=== PATIENT | male | born 1960 | race Caucasian/White ===

== ENCOUNTER 2020-03-15 12:09 | Inpatient (IN) | payer OTHER ==
[~2020-03-15] VITALS: Ht 172.7 cm; Wt 58.1 kg
[~2020-03-15 12:09] MED LIST: AMOXICILLIN250 MG PO; GLUCAGON FOR INJ 1 MG VIAL ONE; LISINOPRIL10 MG PO; OMEPRAZOLE40 MG PO; PROPOFOL IV EMULSION 10 MG/ML 20 ML VIAL ONE
[2020-03-15] MEDS ORDERED: SODIUM CHLORIDE 0.9% 1000ML 1,000 ML ONE (12:25)
[2020-03-15] MEDS ORDERED: LACTATED RINGER'S 1,000 ML INJ ONE (12:30)
[2020-03-15 12:42] LABS: BASOPHILS # (AUTO) 0.1 (0.0-0.1); BASOPHILS % 0.5 % (0.0-1.0); EOSINOPHILS # (AUTO) 0.2 (0.0-0.4); EOSINOPHILS % 0.9 % (0.0-6.0); HEMATOCRIT 53.2 % (38.2-49.6); HEMOGLOBIN 18.9 g/dL (14.0-18.0); LYMPHOCYTES # (AUTO) 1.4 (1.0-3.2); LYMPHOCYTES % 8.4 % (18.0-39.1); MEAN CORPUSCULAR HEMOGLOBIN 32.1 pg (28-32); MEAN CORPUSCULAR HGB CONC 35.5 g/dL (31-35); MEAN CORPUSCULAR VOLUME 90.3 fL (81-99); MONOCYTES # (AUTO) 1.9 (0.2-0.8); MONOCYTES % 11.6 % (4.4-11.3); NEUTROPHILS # (AUTO) 13.1 (2.1-6.9); PLATELET COUNT 403 x10e3/uL (140-360); RED BLOOD COUNT 5.89 x10e6/uL (4.3-5.7); RED CELL DISTRIBUTION WIDTH 12.9 % (11.7-14.4)
[2020-03-15 13:00] LABS: ALBUMIN 4.4 g/dL (3.5-5.0); ALBUMIN/GLOBULIN RATIO 0.8 (0.8-2.0); ANION GAP 22.1 mmol/L (8-16); CALCIUM 9.6 mg/dL (8.4-10.2); CREATININE, SERUM 2.51 mg/dL (0.72-1.25); POTASSIUM 3.1 mmol/L (3.5-5.1)
[2020-03-15] MEDS ORDERED: SODIUM CHLORIDE 0.9% 1000ML 1,000 ML IV SCH (13:00)
[2020-03-15 13:29] LABS: THYROID STIMULATING HORMONE 6.319 uIU/mL (0.350-4.940)
--- NOTE | 2020-03-15 14:03 | Diagnostic Imaging Report ---
X-ray chest frontal view History: Don't feel good, no energy Comparison: None Findings: Central airways: Unremarkable Cardiac silhouette: Unremarkable Mediastinal silhouettes: Unremarkable Pleura: No pleural effusion, pneumothorax or thickening Diaphragms: Unremarkable Lungs: No focal lung disease Skeletal structures: Unremarkable Extrathoracic soft tissues: Unremarkable Impression: As above. Signed by: Nitesh Castaneda MD on 03/15/2020 2:00 PM
[2020-03-15] MEDS ORDERED: LACTATED RINGER'S 1,000 ML INJ SCH (14:15)
[2020-03-15 14:34] LABS: INR 1.02; PARTIAL THROMBOPLASTIN TIME 32.5 seconds (23.8-35.5); PROTHROMBIN TIME 13.9 seconds (11.9-14.5)
[2020-03-15 15:02] LABS: EOSINOPHILS % (MANUAL) 1 % (0-7); LYMPHOCYTES % (MANUAL) 8 % (19-48); MONOCYTES % (MANUAL) 11 % (3.4-9.0); NEUTROPHILS % (MANUAL) 76 % (40-74)
[2020-03-15 15:03] LABS: PLATELET ESTIMATE ADEQUATE; PLATELET MORPHOLOGY COMMENT NORMAL; RBC MORPHOLOGY COMMENT NORMAL
--- NOTE | 2020-03-15 15:50 | Diagnostic Imaging Report ---
EXAMINATION: CT of the abdomen and pelvis without contrast. TECHNIQUE: Spiral CT images of the abdomen and pelvis were performed from the lung bases to the lesser trochanters. No intravenous contrast was given due to diminished GFR. Coronal and sagittal reformatted images were obtained. COMPARISON: Chest radiograph same day CLINICAL HISTORY:Abdominal pain, diarrhea, weakness DISCUSSION: ABSENCE OF INTRAVENOUS CONTRAST DECREASES SENSITIVITY FOR DETECTION OF FOCAL LESIONS AND VASCULAR PATHOLOGY. ABDOMEN/PELVIS: LOWER THORAX: Mild emphysematous changes of the lung bases. HEPATOBILIARY:No focal hepatic lesions. No intrahepatic biliary ductal dilation. The gallbladder is unremarkable. SPLEEN: No splenomegaly or focal splenic lesion. PANCREAS: No focal masses or ductal dilatation. ADRENALS: No adrenal nodules. KIDNEYS/URETERS: 1.2 cm exophytic lesion projecting from the interpolar left kidney has average internal attenuation less than 20 Hounsfield units, compatible with a simple cyst. No additional focal renal lesions. No hydronephrosis or calculi. PELVIC ORGANS/BLADDER: Urinary bladder is incompletely distended but otherwise unremarkable. The prostate is enlarged, measuring 5 cm transversely, with a coarse central calcification. PERITONEUM/RETROPERITONEUM: No ascites or pneumoperitoneum. LYMPH NODES: Scattered mildly prominent mesenteric lymph nodes are not enlarged by CT criteria. No retroperitoneal or pelvic sidewall lymphadenopathy. VESSELS: Atherosclerotic calcification of the abdominal aorta and iliac arterial systems without aneurysmal dilatation. Otherwise limited evaluation in the absence of intravenous contrast. GI TRACT: The large bowel is notable for multiple diverticula along the sigmoid colon without adjacent inflammatory change. Large amount of liquid stool within the colon. Concentric wall thickening at the rectosigmoid junction as seen on coronal image 58 and axial image 69. The appendix is normal. Small lipoma in the duodenum seen on series 2 image 36. No small bowel dilatation to suggest obstruction. BONES AND SOFT TISSUES: No osseous destructive lesions. Degenerative disc changes and facet arthropathy L2-L3 through L5-S1. IMPRESSION: Liquid stool within the colon in keeping with the provided clinical history of diarrhea. This finding in association with increased number of conspicuous mesenteric lymph nodes suggests viral enteritis. Concentric wall thickening of the colon at the rectosigmoid junction may relate to peristalsis; however, gastroenterology consultation for direct visualization to exclude presence of mass lesion is suggested if the patient has not recently undergone screening colonoscopy. Sigmoid diverticulosis without findings of diverticulitis. Atherosclerotic vascular disease. Signed by: Dr. Lawrence Perdue M.D. on 03/15/2020 3:46 PM
[2020-03-15] MEDS ORDERED: PIPERACILLIN/TAZO 4.5 GM 100 ML IV ONE (17:00)
[2020-03-15 17:05] LABS: CLARITY,URINE SL CLOUDY (CLEAR); COLOR,URINE YELLOW (YELLOW); LEUKOCYTE ESTERASE ,URINE TRACE (NEGATIVE); NITRITE,URINE NEGATIVE (NEGATIVE)
[2020-03-15 17:06] LABS: BILIRUBIN,URINE NEGATIVE (NEGATIVE); KETONES,URINE NEGATIVE (NEGATIVE); PROTEIN,URINE DIPSTICK 2+ (NEGATIVE); URINE UROBILINOGEN 0.2 mg/dL (0.2 - 1)
[2020-03-15 17:17] LABS: BACTERIA,URINE MODERATE /HPF; EPITHELIAL CELLS,URINE FEW /LPF; WBC,URINE (MAN) 0-5 /HPF (0-5)
--- NOTE | 2020-03-15 17:34 | Emergency Department Note ---
History of Present Illnes History of Present Illness Chief Complaint: General Medicine Complaints History of Present Illness This is a 59 year old male presents for X 5 DAYS VOMITING, DIARRHEA, WEAKNESS, LEG CRAMPS . 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 Any updates have been documented here. Past Medical History Recent Fever: No Clinical Suspicion of Infectio: No New/Unexplained Change in Ment: No Past Medical History: Hypertension Other Medical History: CELIAC Past Surgical History: T&A Social History Smoking Cessation: Current every day smoker Counseling Performed: Yes Alcohol Use: Daily Other Any Pre-Existing Lines (PICC,: No Review of Systems Review of Systems Constitutional: Reports no symptoms EENTM: Reports no symptoms Cardiovascular: Reports no symptoms Respiratory: Reports no symptoms Gastrointestinal: Reports no symptoms, Reports abdominal pain, Reports diarrhea Genitourinary: Reports no symptoms Musculoskeletal: Reports no symptoms, Reports muscle pain Integumentary: Reports no symptoms Neurological: Reports no symptoms Psychological: Reports no symptoms Endocrine: Reports no symptoms Hematological/Lymphatic: Reports no symptoms Physical Exam Related Data Allergies: Coded Allergies: No Known Allergies (Verified , 07/14/10) Triage Vital Signs Vital Signs Date Time Temp Pulse Resp B/P (MAP) Pulse Ox O2 Delivery O2 Flow Rate FiO2 03/15/20 12:24 98.4 122 20 80/47 99 Room Air Vital signs reviewed: Yes Physical Exam CONSTITUTIONAL Constitutional: Present well-developed, Present well-nourished, Present distressed HENT HENT: Present normocephalic, Present atraumatic, Present oropharynx clear/moist, Present nose normal HENT L/R: Present left ext ear normal, Present right ext ear normal EYES Eyes: Reports PERRL, Reports conjunctivae normal NECK Neck: Present ROM normal PULMONARY Pulmonary: Present effort normal, Present breath sounds normal CARDIOVASCULAR Cardiovascular: Present regular rhythm, Present heart sounds normal, Present capillary refill normal, Present normal rate GASTROINTESTINAL Abdominal: Present soft, Present bowel sounds normal, Present tender GENITOURINARY Genitourinary: Present exam deferred SKIN Skin: Present warm, Present dry MUSCULOSKELETAL Musculoskeletal: Present ROM normal NEUROLOGICAL Neurological: Present alert, Present oriented x 3, Present no gross motor or sensory deficits PSYCHOLOGICAL Psychological: Present mood/affect normal, Present judgement normal Results Laboratory Result Diagram: 03/15/20 1235 03/15/20 1235 Laboratory Laboratory Tests Test 03/15/20 16:54 03/15/20 16:52 03/15/20 14:36 03/15/20 12:35 Lactic Acid Level 1.6 mmol/L (0.5-2.0) 2.8 mmol/L (0.5-2.0) Urine Color Yellow (YELLOW) Urine Clarity Sl cloudy (CLEAR) Urine pH 5 (5 - 7) Urine Specific [place] 1.020 (1.010-1.025) Urine Protein 2+ (NEGATIVE) Urine Glucose (UA) Negative (NEGATIVE) Urine Ketones Negative (NEGATIVE) Urine Blood Moderate (NEGATIVE) Urine Nitrite Negative (NEGATIVE) Urine Bilirubin Negative (NEGATIVE) Urine Urobilinogen 0.2 mg/dL (0.2 - 1) Urine Leukocyte Esterase Trace (NEGATIVE) Urine RBC 6-10 /HPF (0-5) Urine WBC 0-5 /HPF (0-5) Urine Epithelial Cells Few /LPF (NONE) Urine Bacteria Moderate /HPF (NONE) White Blood Count 16.75 x10e3/uL (4.8-10.8) Red Blood Count 5.89 x10e6/uL (4.3-5.7) Hemoglobin 18.9 g/dL (14.0-18.0) Hematocrit 53.2 % (38.2-49.6) Mean Corpuscular Volume 90.3 fL (81-99) Mean Corpuscular Hemoglobin 32.1 pg (28-32) Mean Corpuscular Hemoglobin Concent 35.5 g/dL (31-35) Red Cell Distribution Width 12.9 % (11.7-14.4) Platelet Count 403 x10e3/uL (140-360) Neutrophils (%) (Auto) 78.0 % (38.7-80.0) Lymphocytes (%) (Auto) 8.4 % (18.0-39.1) Monocytes (%) (Auto) 11.6 % (4.4-11.3) Eosinophils (%) (Auto) 0.9 % (0.0-6.0) Basophils (%) (Auto) 0.5 % (0.0-1.0) Neutrophils # (Auto) 13.1 (2.1-6.9) Lymphocytes # (Auto) 1.4 (1.0-3.2) Monocytes # (Auto) 1.9 (0.2-0.8) Eosinophils # (Auto) 0.2 (0.0-0.4) Basophils # (Auto) 0.1 (0.0-0.1) Absolute Immature Granulocyte (auto 0.10 x10e3/uL (0-0.1) Differential Total Cells Counted 100 Neutrophils % (Manual) 76 % (40-74) Lymphocytes % (Manual) 8 % (19-48) Monocytes % (Manual) 11 % (3.4-9.0) Eosinophils % (Manual) 1 % (0-7) Reactive Lymphocytes 4 Platelet Estimate Adequate Platelet Morphology Comment Normal Red Cell Morphology Comment Normal Prothrombin Time 13.9 seconds (11.9-14.5) Prothromb Time International Ratio 1.02 Activated Partial Thromboplast Time 32.5 seconds (23.8-35.5) Sodium Level 124 mmol/L (136-145) Potassium Level 3.1 mmol/L (3.5-5.1) Chloride Level 88 mmol/L (98-107) Carbon Dioxide Level 17 mmol/L (22-29) Anion Gap 22.1 mmol/L (8-16) Blood Urea Nitrogen 45 mg/dL (7-26) Creatinine 2.51 mg/dL (0.72-1.25) Estimat Glomerular Filtration Rate 27 ML/MIN (60-) BUN/Creatinine Ratio 18 (6-25) Glucose Level 151 mg/dL (74-118) Calcium Level 9.6 mg/dL (8.4-10.2) Total Bilirubin 0.8 mg/dL (0.2-1.2) Aspartate Amino Transf (AST/SGOT) 33 IU/L (5-34) Alanine Aminotransferase (ALT/SGPT) 22 IU/L (0-55) Alkaline Phosphatase 114 IU/L (40-150) Lactate Dehydrogenase 270 IU/L (125-220) Troponin I 0.023 ng/mL (0-0.300) Total Protein 9.6 g/dL (6.5-8.1) Albumin 4.4 g/dL (3.5-5.0) Globulin 5.2 g/dL (2.3-3.5) Albumin/Globulin Ratio 0.8 (0.8-2.0) Thyroid Stimulating Hormone (TSH) 6.319 uIU/mL (0.350-4.940) Thyroxine (T4) 11.16 ug/dL (4.5-10.9) Lab results reviewed: Yes Imaging Imaging results reviewed: Yes Diagnostics Tests Diagnostic test(s) reviewed: Yes Assessment & Plan Medical Decision Making MDM 59-year-old man presents for diarrhea, muscle cramps. Initially was hypotensive and was given 3 L of crystalloid with resolution of hypertension. Initial lactic acid was 2.8. He was started on Zosyn for presumed abdominal infection. CT abdomen and pelvis shows enteritis. He was discussed with Dr. Solomon was agreed to admit for further management of his enteritis. Patient's transient floor. Sepsis suspected at time of antibiotic order. Lactic acid was repeated if initial >2 30cc/kg crystalloid bolus given Vasopressors were not indicated Reassessment Reassessment time: 17:33 Reassessment BP and pain improved Assessment & Plan Final Impression: (1) Enteritis (2) Hypotension Depart Disposition: ADMITTED Last Vital Signs Date Time Temp Pulse Resp B/P (MAP) Pulse Ox O2 Delivery O2 Flow Rate FiO2 03/15/20 16:52 112 12 80/63 98 Room Air 03/15/20 12:24 98.4 Home Meds Reported Medications Amoxicillin (AMOXICILLIN) 250 Mg Capsule, 500 MG PO, CAP 03/24/15 Lisinopril (LISINOPRIL) 10 Mg Tablet, 10 MG PO DAILY, #30 TAB 03/24/15 Omeprazole (OMEPRAZOLE) 40 Mg Capsule.dr, 20 MG PO DAILY 03/24/15 Medications in the ED Sodium Chloride 1,000 ml @ ud STK-MED ONCE .ROUTE ; Start 03/15/20 at 12:25; St op 03/15/20 at 12:20; Status DC Lactated Ringer's 1,000 ml @ 125 mls/hr Q8H ONCE INJ Last administered on 03/15/20at 12:46; Admin Dose 125 MLS/HR; Start 03/15/20 at 12:30; Stop 03/15/20 at 20:29 Sodium Chloride 1,000 ml @ 0 mls/hr Q0M IV Last administered on 03/15/20at 12:50; Admin Dose 1,000 MLS/HR; Start 03/15/20 at 13:00; Stop 03/15/20 at 17:00; Status DC Lactated Ringer's 1,000 ml @ 0 mls/hr Q0M INJ Last administered on 03/15/20at 14:36; Admin Dose 1,000 MLS/HR; Start 03/15/20 at 14:15; Stop 04/14/20 at 14:14 Piperacillin Sod/ Tazobactam Sod 100 ml @ 100 mls/hr NOW ONCE IV ; Start 03/15/20 at 17:00; Stop 03/15/20 at 17:59 LUCI MOTLEY MD Mar 15, 2020 17:34
--- OUTSIDE RECORDS SUMMARY | 2020-03-15 17:39 | XMS REPORT | Continuity of Care Document ---
Author Author [facility] t Organization [facility] Address [address] [place] [phone] Phone Unavailable Care Team Providers Care Sports Therapist Name Role Phone Girish Callahan Attphys Unavailable Problems This patient has no known problems. Allergies, Adverse Reactions, Alerts This patient has no known allergies or adverse reactions. Medications This patient has no known medications. Procedures This patient has no known procedures. Results Test Description Test Time Test Comments Results Result Comments Source CT ABDOMEN/PELVIS WO 2020-03-15 15:32:00 [place] [address] Patient Name: DIANA CASTILLO MR #: [id number] : 1960 Age/Sex: 59/M Req #: [id number] Adm Physician: Ordered by: Luci Callahan MD Report #: [id number] Location: ER Room/Bed: Procedure: [id number] CT/CT ABDOMEN/PELVIS WO Exam Date: 03/15/20 Exam Time: 1440 REPORT STATUS: Signed EXAMINATION: CT of the abdomen and pelvis without contrast. TECHNIQUE: Spiral CT images of the abdomen and pelvis were performed from the lung bases to the lesser trochanters. No intravenous contrast was given due to diminished GFR. Coronal and sagittal reformatted images were obtained. COMPARISON: Chest radiograph same day CLINICAL HISTORY:Abdominal pain, diarrhea, weakness DISCUSSION: ABSENCE OF INTRAVENOUS CONTRAST DECREASES SENSITIVITY FOR DETECTION OF FOCAL LESIONS AND VASCULAR PATHOLOGY. ABDOMEN/PELVIS: LOWER THORAX: Mild emphysematous changes of the lung bases. HEPATOBILIARY:No focal hepatic lesions. No intrahepatic biliary ductal dilation. The gallbladder is unremarkable. SPLEEN: No splenomegaly or focal splenic lesion. PANCREAS: No focal masses or ductal dilatation. ADRENALS: No adrenal nodules. KIDNEYS/URETERS: 1.2 cm exophytic lesion projecting from the interpolar left kidney has average internal attenuation less than 20 Hounsfield units, compatible with a simple cyst. No additional focal renal lesions. No hydronephrosis or calculi. PELVIC ORGANS/BLADDER: Urinary bladder is incompletely distended but otherwise unremarkable. The prostate is enlarged, measuring 5 cm transversely, with a coarse central calcification. PERITONEUM/RETROPERITONEUM: No ascites or pneumoperitoneum. LYMPH NODES: Scattered mildly prominent mesenteric lymph nodes are not enlarged by CT criteria. No retroperitoneal or pelvic sidewall lymphadenopathy. VESSELS: Atherosclerotic calcification of the abdominal aorta and iliac arterial systems without aneurysmal dilatation. Otherwise limited evaluation in the absence of intravenous contrast. GI TRACT: The large bowel is notable for multiple diverticula along the sigmoid colon without adjacent inflammatory venkat nge. Large amount of liquid stool within the colon. Concentric wall thickening at the rectosigmoid junction as seen on coronal image 58 and axial image 69. The appendix is normal. Small lipoma in the duodenum seen on series 2 image 36. No small bowel dilatation to suggest obstruction. BONES AND SOFT TISSUES: No osseous destructive lesions. Degenerative disc changes and facet arthropathy L2-L3 through L5-S1. IMPRESSION: Liquid stool within the colon in keeping with the provided clinical history of diarrhea. This finding in association with increased number of conspicuous mesenteric lymph nodes suggests viral enteritis. Concentric wall thickening of the colon at the rectosigmoid junction may relate to peristalsis; however, gastroenterology consultation for direct visualization to exclude presence of mass lesion is suggested if the patient has not recently undergone screening colonoscopy. Sigmoid diverticulosis without findings of diverticulitis. At herosclerotic vascular disease. Signed by: Dr. Mary Warren M.D. on 03/15/2020 3:46 PM Dictated By: MARY WARREN MD [id number] Transcribed By: DISHA on 03/15/20 8645 COPY TO: LUCI CALLAHAN MD CHEST SINGLE (PORTABLE) 2020-03-15 13:58:00 [place] [address] Patient Name: DIANA CASTILLO MR #: [id number] : 1960 Age/Sex: 59/M Req #: [id number] Adm Physician: Ordered by: Luci Callahan MD Report #: [id number] Location: ER Room/Bed: Procedure: [id number] DX/CHEST SINGLE (PORTABLE) Exam Date: 03/15/20 Exam Time: 1310 REPORT STATUS: Signed X-ray chest frontal view History: Don't feel good, no energy Comparison: None Findings: Central airways: Unremarkable Cardiac silhouette: Unremarkable Mediastinal silhouettes: Unremarkable Pleura: No pleural effusion, pneumot horax or thickening Diaphragms: Unremarkable Lungs: No focal lung disease Skeletal structures: Unremarkable Extrathoracic soft tissues: Unremarkable Impression: As above. Signed by: Gege Gooden MD on 03/15/2020 2:00 PM Dictated By: GEGE GOODEN MD 1400 Transcribed By: DISHA on 03/15/20 1400 COPY TO: LUCI CALLAHAN MD
--- NOTE | 2020-03-15 18:10 | NUR ---
GREEN SHEET ON CHART PER POLICY
[2020-03-15] MEDS ORDERED: SODIUM CHLORIDE 0.9% 1000ML 1,000 ML IV STA (18:39)
--- NOTE | 2020-03-15 19:24 | NUR ---
REPORT TO MARY Villalba
[2020-03-15] MEDS ORDERED: ACETAMINOPHEN 325 MG TAB PO PRN (20:00)
[2020-03-15] MEDS ORDERED: ONDANSETRON HCL INJ 2MG/ML 2ML 2 MG/ML VIAL IV PRN (20:00)
[2020-03-15] MEDS ORDERED: METOPROLOL TARTRATE INJ 1 MG/ML VIAL IV PRN (20:00)
[2020-03-15] MEDS ORDERED: LEVOTHYROXINE SODIUM 100 MCG/VIAL IV NR (20:15)
[2020-03-15] MEDS: SODIUM CHLORIDE 0.9% 1000ML 1,000 ML IV SCH (20:24)
[2020-03-15 20:55] VITALS: BP 91/59
[2020-03-15] MEDS ORDERED: TEMAZEPAM 7.5 MG CAP PO PRN (21:00)
--- NOTE | 2020-03-15 22:15 | NUR ---
RECEIVED PATIENT FROM ER IN STABLE CONDITION, NO SIGNS OF DISTRESS NOTED. BLOOD PRESSURE IS IN BETTER RANGE AND IV FLUIDS ARE RUNNING AT ORDERED RATE. PATIENT VOICES NO PAIN AT THIS TIME. BED IS IN LOWEST POSITION, BOTH SIDE RAILS ARE UP, CALL LIGHT IS WITHIN EASY REACH, WILL CONTINUE TO MONITOR.
[2020-03-15] MEDS: FAMOTIDINE 20 MG/2 ML VIAL IV SCH (22:20)
[2020-03-15 22:30] VITALS: BP 112/72
[2020-03-16] VITALS (8 sets, daily range): BP systolic 100–127; BP diastolic 57–85
--- NOTE | 2020-03-16 01:16 | History and Physical ---
PRIMARY CARE PHYSICIAN: Vernon Frye DO CONSULTING PHYSICIAN: Norman Moss MD, with Gastroenterology. CHIEF COMPLAINT: Diarrhea. HISTORY OF PRESENT ILLNESS: The patient is a 59-year-old male who presented to the emergency department with 5-day history of nausea, vomiting, diarrhea, leg cramps, weakness, and dehydration. He admits noncompliance with his celiac gluten-free diet and drinking some whiskey as well. He has been given a considerable amount of fluids in the emergency department, likely around 3 L. He is seen in ER room #11 and per staff, he will be going to room #212. PAST MEDICAL HISTORY: Hypertension; celiac disease; noncompliance with gluten-free diet; bilateral inguinal hernias, right is reportedly worse than left; psoriasis, mostly at the feet. PAST SURGICAL HISTORY: Tonsillectomy and adenoidectomy. FAMILY HISTORY: Father had Alzheimer's, his age 72, also had tuberculosis. Son has autism. His mother has irritable bowel syndrome. SOCIAL HISTORY: The patient admits to smoking daily one pack per day for 15 years. He drinks alcohol, rum 4-5 times a week. Denies any use of illicit drugs. ALLERGIES: NO KNOWN ALLERGIES. REVIEW OF SYSTEMS: CONSTITUTIONAL: Denies any chills or fever at present. He wears glasses. He has had ear congestion past few days. He denies any cough or shortness of breath. Denies any difficulty urinating. PSYCHIATRIC: Denies psychiatric history. INTEGUMENTARY: He has psoriasis. CARDIOVASCULAR: Denies chest pain or palpitations. GASTROINTESTINAL: He has had vomiting this afternoon and diarrhea earlier today. MUSCULOSKELETAL: Unstable now when getting out of bed. He has had leg cramps as well. NEUROLOGIC: No complaints of headache or dizziness. HEMATOLOGIC: No bleeding or bruising noted. PHYSICAL EXAMINATION: VITAL SIGNS: Temperature 98.4, heart rate 100, blood pressure was 88/61 earlier, now 112/72, respirations 18, oxygen saturation 98% on room air. Height 5 feet 8 inches, weight 128 pounds, BMI 19.46. GENERAL: Supine in bed, relaxed, communicative. LUNGS: Generally clear to auscultation. Respiratory pattern even and unlabored, breathing room air. No supplemental oxygen. HEENT: EOMI. NECK: Supple. CARDIOVASCULAR: Regular rate and rhythm. No murmur. ABDOMEN: Bowel sounds positive. Soft, nontender. EXTREMITIES: No pitting edema. No clubbing, cyanosis, or marked swelling. No signs of DVT. NEUROLOGICAL: GCS 15. Nonfocal. LABORATORY DATA: WBCs 16.75, hemoglobin 18.9, hematocrit 53.2, platelets 403. PT 13.9, INR 1.02, PTT 32.5. Lactic acid was 2.8, now 1.6. Lactate dehydrogenase elevated at 270. Troponin I 0.023. TSH 6.319, T4 of 11.16. Sodium 124, potassium 3.1, chloride 88, CO2 of 17, anion gap 22.1, BUN 45, creatinine 2.51, estimated GFR 27, glucose 151, calcium 9.6, total bilirubin 0.8, AST 33, ALT 22, alkaline phosphatase 114, total protein 9.6, albumin 4.4. Urinalysis slightly cloudy, 2+ protein, moderate amount of blood, negative for nitrites, trace amount of leukocyte esterase, rbc's 6-10, urine bacteria moderate. Coronavirus PCR collected today and is pending. Blood cultures x2 collected and pending. Chest x-ray negative. CT of the abdomen and pelvis showed viral enteritis, sigmoid diverticulosis, atherosclerotic vascular disease. ASSESSMENT AND PLAN: 1. Viral enteritis with nausea, vomiting, diarrhea, dehydration, weakness, leg cramps, and sigmoid diverticulosis without diverticulitis. The patient has received lactated Ringer's. Currently, there is an order for normal saline at 100 mL/hour. He has also received Zosyn. We will recheck WBCs in the morning to determine if Zosyn needs to continue. He is extremely dehydrated. We will continue normal saline. I consulted manager education, Dr. Norman Moss. 2. Severe sepsis due to viral enteritis with acute kidney injury, present on admission (improving). Monitor white blood cell count. May need to continue Zosyn. 3. Acute kidney injury. BUN 45, creatinine 2.51, estimated GFR 27. Monitor labs. 4. Hypotension due to viral enteritis with a history of hypertension. Blood pressure was 88/61, now improved to 112/72. Continue to monitor. Continue IV fluids. 5. Metabolic acidosis. Serum bicarbonate, i.e., serum CO2 level 17. Monitor for improvement. May need to add bicarb to IV fluids. 6. Acute hyponatremia. Sodium 124. Continue normal saline. Monitor labs for improvement. 7. Acute hypokalemia. Potassium level is 3.1. Monitor closely and replete p.r.n. We will check a magnesium level tomorrow as well. 8. Hypothyroidism. TSH and T4 elevated at 6.319 and 11.16 respectively. We will start the patient on levothyroxine 50 mcg p.o. daily. The patient will need to follow up on TSH level in 3 months. The patient was on lisinopril at home. We will hold this given his renal function. Hold omeprazole. 9. Prophylaxis. IV Pepcid. SCDs. H and P billing code [id number]. Time spent 60 minutes. Dictated by Riccardo Vázquez NP Jarvis Solomon MD HWP/MODL /[id number]
[2020-03-16 05:58] LABS: BASOPHILS % 0.3 % (0.0-1.0); EOSINOPHILS % 0.5 % (0.0-6.0); HEMATOCRIT 40.1 % (38.2-49.6); HEMOGLOBIN 14.7 g/dL (14.0-18.0); LYMPHOCYTES # (AUTO) 0.8 (1.0-3.2); LYMPHOCYTES % 12.3 % (18.0-39.1); MEAN CORPUSCULAR HEMOGLOBIN 33.7 pg (28-32); MEAN CORPUSCULAR HGB CONC 36.7 g/dL (31-35); MONOCYTES # (AUTO) 0.9 (0.2-0.8); MONOCYTES % 13.5 % (4.4-11.3); NEUTROPHILS # (AUTO) 4.7 (2.1-6.9); NEUTROPHILS % 73.1 % (38.7-80.0); PLATELET COUNT 249 x10e3/uL (140-360); RED BLOOD COUNT 4.36 x10e6/uL (4.3-5.7); RED CELL DISTRIBUTION WIDTH 13.1 % (11.7-14.4)
[2020-03-16] MEDS: SODIUM CHLORIDE 0.9% 1000ML 1,000 ML IV SCH ×2 (06:13→16:44)
[2020-03-16] MEDS: LEVOTHYROXINE SODIUM 50 MCG TAB PO SCH (06:13)
[2020-03-16 06:27] LABS: ALBUMIN 2.7 g/dL (3.5-5.0); ALBUMIN/GLOBULIN RATIO 0.8 (0.8-2.0); ANION GAP 12.5 mmol/L (8-16); CALCIUM 7.5 mg/dL (8.4-10.2); CHOL/HDL RATIO 4.4 (3.9-4.7); CREATININE, SERUM 1.57 mg/dL (0.72-1.25); MAGNESIUM 1.6 MG/DL (1.3-2.1); PHOSPHORUS 3.2 MG/DL (2.3-4.7); POTASSIUM 3.5 mmol/L (3.5-5.1)
[2020-03-16] MEDS: FAMOTIDINE 20 MG/2 ML VIAL IV SCH ×2 (09:40→21:37)
--- NOTE | 2020-03-16 10:37 | NUR ---
GAVE PACKET OF INFORMATION WITH COMMUNITY RESOURCES FOR ASSISTANCE WITH LOW TO NO INCOME TO PATIENT. RESOURCES THAT PATIENT MAY BE ABLE TO FOLLOW UP UPON DISCHARGE. PT EDUCATED ON EACH RESOURCE AND UNDERSTANDING HOW TO FOLLOW UP TO SEE IF QUALIFIED FOR EACH RESOURCE.
[2020-03-16] MEDS: CHOLESTYRAMINE 4 GM PACKET PO PRN ×2 (11:20→18:12)
--- NOTE | 2020-03-16 12:37 | NUR ---
shorts sifter visited the pt and initiated relationship of pastoral support and prayer. shorts sifter provided pastoral hope , prayer and conversation . Pt expressed peace and acceptance chaplain Héctor
[2020-03-16] MEDS: PIPER-TAZ 3.375 GM 50 ML IV SCH (16:44)
--- NOTE | 2020-03-16 19:15 | NUR ---
BEDSIDE SHIFT REPORT RECEIVED. PATIENT IS RESTING IN BED, AAOX3. RESP EVEN AND UNLABORED. NO ACUTE DISTRESS NOTED. TELE IN PLACE. EDUCATED PT ABOUT FALL PRECAUTIONS. PT VERBALIZED UNDERSTANDING. CALL LIGHT WITH IN EASY REACH. INSTRUCTED PT TO USE CALL LIGHT FOR ALL THE NEEDS. BED IS LOW AND LOCKED. SIDE RAILS X2. PT DENIES NEEDS AT THIS TIME. CONTINUE TO MONITOR CLOSELY.
[2020-03-16] MEDS ORDERED: POTASSIUM CHLORIDE 20 MEQ TAB CR PO STA (22:16)
[2020-03-16] MEDS ORDERED: MAGNESIUM SULFATE 2GM/50ML 50 ML IV ONE (22:30)
--- NOTE | 2020-03-16 22:35 | NUR ---
NOTIFIED DR BELL THAT PATIENT COMPLAINT OF HAVING DIARRHEA EVERY HOUR. NEW ORDER CO EGD AND COLONOSCOPY. 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
--- NOTE | 2020-03-16 23:20 | NUR ---
STOCK OR DELIVERY CLERK AMARI SAID IV FLUID WITH BICARB CAN WAIT TILL PHARMACY COME IN AND MIX TO BE GIVEN TO PATIENT
--- NOTE | 2020-03-16 23:30 | NUR ---
OBTAINED CONSENT FORM FOR EGD AND COLONOSCOPY
[2020-03-16] MEDS ORDERED: SODIUM BICARB IV SCH (23:40)
[2020-03-16] MEDS ORDERED: SODIUM CHLORIDE 0.9% IV SCH ×2 (23:40→23:45)
[2020-03-16] MEDS ORDERED: SODIUM BICARBONATE 8.4% IV SCH (23:45)
[2020-03-17] VITALS: BP 133/81
[2020-03-17] MEDS: PIPER-TAZ 3.375 GM 50 ML IV SCH ×5 (00:44→23:59)
--- NOTE | 2020-03-17 02:31 | Progress Note ---
DATE: CONSULTING PHYSICIAN: Dr. Norman Moss with Gastroenterology. SUBJECTIVE: The patient is lying supine in bed. He states he has been having diarrhea every hour today. He did eat some. Apparently, the patient has been having more diarrhea and then I realized he had 3 to 4 stools a day for about 2 weeks and then about a week prior to admission he was having profuse diarrhea for that whole week. Dr. Moss saw and evaluated the patient today and states the patient will have a scope in the morning, likely EGD and colonoscopy. PHYSICAL EXAMINATION: VITAL SIGNS: Temperature 98.1, heart rate 78, blood pressure 110/72, respirations 18, and oxygen saturation 100% on room air. GENERAL: Supine, in no acute distress. LUNGS: Clear to auscultation. Respiratory pattern even and unlabored. HEENT: EOMI. NECK: Supple. CARDIOVASCULAR: Regular rate and rhythm without murmur. ABDOMEN: Bowel sounds positive. Soft, nontender. EXTREMITIES: No pitting edema. No clubbing, cyanosis, or signs of DVT. NEUROLOGICAL: GCS 15. Nonfocal. LABORATORY DATA: WBCs 6.36 (16.75), hemoglobin 14.7, hematocrit 40.1, and platelets 249. Sodium 129, potassium 3.5, carbon dioxide 15, BUN 36, creatinine 1.57, estimated GFR 46. Hemoglobin A1c 5%. Lactic acid was 1.6 yesterday. Calcium 7.5, phosphorus 3.2, magnesium 1.6. LFTs within normal limits. Total protein 6.2, albumin 2.7, triglycerides 174, LDL 47, HDL 24. IMAGING STUDIES: No new imaging studies. ASSESSMENT AND PLAN: 1. Viral enteritis with nausea, vomiting, diarrhea, dehydration, weakness, leg cramps, and sigmoid diverticulosis without diverticulitis. Continue IV fluids, normal saline at 100 mL an hour, Zosyn. Gastroenterology following. 2. Severe sepsis due to a viral enteritis with acute kidney injury, present on admission. White blood cell count normalized. Continue Zosyn. 3. Acute kidney injury. BUN 36, creatinine 1.57, estimated GFR 46 ( ), improving significantly. Continue IV fluids. 4. Hypotension due to viral enteritis with a history of hypertension. Continue IV fluids. Blood pressure 110/72. 5. Metabolic acidosis. Serum bicarbonate 15, on sodium bicarbonate and IV fluids. 6. Acute hyponatremia, sodium 129 (129), monitor. 7. Acute hypomagnesemia. Magnesium level 1.6, repleted with 2 g magnesium sulfate tonight. 8. Acute hypokalemia, potassium level 3.5 (3.1), 40 mEq potassium chloride 1 hour after magnesium sulfate, monitor. 9. Hypothyroidism. Levothyroxine 50 mcg p.o. daily started. 10. Prophylaxis, SCDs and IV Pepcid. Billing code [id number]. Time spent 35 minutes. Dictated by Riccardo Vázquez NP Jarvis Solomon MD HWP/MODL /[id number]
[2020-03-17 04:00] VITALS: BP 133/77
[2020-03-17] MEDS ORDERED: CITRATE OF MAGNESIA 300ML BOTTLE PO ONE ×2 (05:00→07:00)
[2020-03-17] MEDS: LEVOTHYROXINE SODIUM 50 MCG TAB PO SCH (05:24)
[2020-03-17 06:04] LABS: BASOPHILS % 0.5 % (0.0-1.0); EOSINOPHILS # (AUTO) 0.1 (0.0-0.4); EOSINOPHILS % 1.6 % (0.0-6.0); HEMATOCRIT 40.5 % (38.2-49.6); HEMOGLOBIN 14.5 g/dL (14.0-18.0); LYMPHOCYTES # (AUTO) 1.1 (1.0-3.2); MEAN CORPUSCULAR HEMOGLOBIN 33.5 pg (28-32); MEAN CORPUSCULAR HGB CONC 35.8 g/dL (31-35); MEAN CORPUSCULAR VOLUME 93.5 fL (81-99); MONOCYTES # (AUTO) 1.1 (0.2-0.8); MONOCYTES % 17.7 % (4.4-11.3); NEUTROPHILS # (AUTO) 3.9 (2.1-6.9); NEUTROPHILS % 61.9 % (38.7-80.0); PLATELET COUNT 274 x10e3/uL (140-360); RED BLOOD COUNT 4.33 x10e6/uL (4.3-5.7); RED CELL DISTRIBUTION WIDTH 13.2 % (11.7-14.4)
[2020-03-17 06:20] LABS: ANION GAP 11.2 mmol/L (8-16); BLOOD UREA NITROGEN 18 mg/dL (7-26); BUN/CREATININE RATIO 16 (6-25); CALCIUM 7.8 mg/dL (8.4-10.2); CARBON DIOXIDE 14 mmol/L (22-29); CHLORIDE 112 mmol/L (98-107); CREATININE, SERUM 1.15 mg/dL (0.72-1.25); EST GLOMERULAR FILTRATION RATE > 60 ML/MIN (60-); GLUCOSE 75 mg/dL (74-118); PHOSPHORUS 1.5 MG/DL (2.3-4.7); POTASSIUM 4.2 mmol/L (3.5-5.1); SODIUM 133 mmol/L (136-145)
[2020-03-17 08:11] VITALS: BP 126/75
[2020-03-17] MEDS ORDERED: SODIUM PHOSPHATE 3 MMOL/ML INJ IV ONE (09:15)
[2020-03-17] MEDS ORDERED: BISACODYL 5 MG TAB EC PO ONE (09:20)
[2020-03-17] MEDS: FAMOTIDINE 20 MG/2 ML VIAL IV SCH ×2 (09:35→21:30)
[2020-03-17] MEDS ORDERED: SODIUM PHOSPHATE 10 MMOL in SODIUM CHLORIDE 0.9% 250ML 250 ML IV ONE (10:00)
[2020-03-17] MEDS: SODIUM BICARBONATE 8.4% 150 ML in DEXTROSE 5% 1,000 ML IV SCH ×2 (11:01→21:30)
[2020-03-17 12:05] VITALS: BP 128/92
[2020-03-17] MEDS ORDERED: PROPOFOL IV EMULSION 10 MG/ML 20 ML VIAL ONE (15:19)
[2020-03-17] MEDS ORDERED: METOCLOPRAMIDE HCL 10 MG/2ML VIAL ONE (15:19)
[2020-03-17 16:21] VITALS: BP 129/78
[2020-03-17] MEDS: DICYCLOMINE HCL 20 MG TAB PO SCH ×2 (16:29→21:30)
[2020-03-17] MEDS ORDERED: PANTOPRAZOLE 40 MG 10ML VIAL IV ONE (16:30)
[2020-03-17 16:41] LABS: WBC,FECAL (FECAL LACTOFERRIN) POSITIVE (NEGATIVE)
--- NOTE | 2020-03-17 18:41 | NUR ---
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 Pt with reported N/V/D prior to admit and continues to have diarrhea. Consult received from BODY RECALL INSTRUCTOR, no reason given. Pt out of room at time of attempted visits, plan for surgery today. Unable to obtain hx from pt at this time. Diet education materials left at bedside, will address at follow up. Rec's provided. Chart reviewed. Will continue to monitor. Principal Problems/Diagnoses: enteritis, hypotension PMH: HTN, celiac disease, hernias, psoriasis GI: 03/17- loose stool Skin: intact Labs: 03/17: Na 133, Ca 7.8, Phos 1.5 Meds: pepcid, synthroid, questran, abx, zofran, Na bicarb Ht: 68 in Wt: 127 lb BMI: 19.3 kg/m2 IBW: 154 lb Malnutrition Evaluation (03/17/20) The patient does not meet criteria for a specified degree of malnutrition at this time. Will re-evaluate at follow-up as appropriate. TIFFANI, pt out of room at time of attempted visits. Nutrition Prescription (Diet Order): NPO Estimated Nutritional Needs: 1431-0449 calories/day (25-30 kcal/kg CBW) 58-86 g protein/day (1-1.5 g pro/kg CBW) Diet Adequacy: Not meeting calorie needs, Not meeting protein needs Diet Tolerance: pending Diet Education Needs Assessment: Diet education indicated, pt out of room at time of visit. Celiac diet education materials provided- left at bedside with contact information. Will address diet education at f/u. Nutrition Care Level: moderate Nutrition Diagnosis: Inadequate energy and protein intake related to current medical conditions as evidenced by currently NPO and not meeting needs. Goal: Patient will meet 75-100% of estimated needs by follow up Progress: N/A Interventions: -Gluten, fiber modified diet, Survival information, Recommended Modifications, Multivitamin/mineral supplement therapy Monitoring/Evaluation: -Total energy intake, Total protein intake, Modified diet, Liquid supplement, Weight change, Level of knowledge, Self management Signed: Tika Driver RD, LD, CNSC
--- NOTE | 2020-03-17 19:10 | Operative Report ---
DATE OF PROCEDURE: 03/17/2020 SURGEON: Norman Moss MD PROCEDURES: EGD with biopsies, and colonoscopy with polypectomy and biopsies. REFERRING PHYSICIANS: 1. Vernon Frye DO. 2. Jarvis Solomon MD. INDICATIONS FOR EGD: Nausea and vomiting. INDICATIONS FOR COLONOSCOPY: Persistent diarrhea. MEDICATIONS: The patient was done under MAC, please see anesthesiologist's note. PROCEDURE IN DETAIL: With the patient in left lateral decubitus position, a flexible fiberoptic Olympus gastroscope was introduced into the esophagus under direct visualization without any difficulty. The esophagus appeared to be within normal limits. The scope was then advanced with ease into the stomach, traversing a small sliding hiatal hernia. The mucosa overlying the antrum and the body revealed some patchy erythema and low-grade to moderate edema, and biopsies were obtained, and sent to stain for H. pylori. A minute ulcer was also noted in the proximal antrum along the greater curvature and that was biopsied. The pylorus was of normal contour and shape, it was intubated with ease and the scope was advanced all the way to the second portion of the duodenum. A minute nodule was noted in the proximal second portion, that was biopsied. Biopsies were obtained from the second portion and duodenal bulb to rule out sprue. The scope was then withdrawn back into the stomach and retroflexed, mucosa overlying the fundus and cardia appeared to be within normal limits. The scope was then straightened out, it was subsequently withdrawn. The patient tolerated the procedure well. IMPRESSION: 1. Normal esophagus. 2. Small sliding hiatal hernia. 3. Gastritis, biopsied, biopsies sent to stain for H. pylori. 4. Gastric ulcer, approximately 4 mm in size, proximal antrum greater curvature without active bleeding or stigmata of recent hemorrhage biopsied. 5. Rule out sprue. 6. Minute nodule, proximal second portion of the duodenum, biopsied. PLAN: 1. Follow up histology. 2. Initiate Protonix 40 mg one p.o. q.a.m. a.c. DESCRIPTION OF PROCEDURE: The patient was then turned around after adequate lubrication of the anal canal, a flexible fiberoptic Olympus colonoscope was inserted into the rectum with ease and advanced all the way to the cecum. Prep overall was suboptimal with some retained fecal material in the colon, but visualization was fair. Mucosa overlying the cecum appeared to be within normal limits. The ileocecal valve was intubated and the scope was advanced into the terminal ileum. Biopsies were obtained. The scope was then withdrawn back into the colon, it was then withdrawn slowly and mucosa overlying the ascending, transverse, and descending grossly were unremarkable. Multiple random biopsies were obtained to rule out microscopic colitis. Diverticular disease was noted in the sigmoid colon. Also, the sigmoid colon excessively spastic and irritable. A minute polyp was removed per hot snare polypectomy from the proximal rectum. The scope was then retroflexed into the distal rectum; small internal hemorrhoids were noted, none of which was actively bleeding. The scope was then straightened out, it was subsequently withdrawn after securing an adequate stool specimen, that was sent for the appropriate stool studies. The patient tolerated the procedure well. IMPRESSION: 1. Suboptimal prep, but visualization was fair. 2. Rule out microscopic colitis. 3. Diverticulosis. 4. Rectal polyp, hot snared. 5. Internal hemorrhoids, none actively bleeding. PLAN: 1. Follow up histology. 2. Follow up stool studies. 3. Initiate Bentyl 20 mg one p.o. t.i.d. MD JENNIFER Musa/TRINI /[id number] cc: MD Vernon Nicolas DO
[2020-03-17 20:00] VITALS: BP 143/73
[2020-03-17] MEDS: PANTOPRAZOLE 40 MG 10ML VIAL IV SCH (21:30)
[2020-03-18] VITALS (7 sets, daily range): BP systolic 117–138; BP diastolic 75–81
[2020-03-18] MEDS ORDERED: DIPHENOXYLATE/ATROPINE TAB PO ONE ×2 (00:30→09:50)
[2020-03-18] MEDS ORDERED: SODIUM PHOSPHATE 3 MMOL/ML INJ IV ONE (02:00)
--- NOTE | 2020-03-18 02:42 | Progress Note ---
DATE: SUBJECTIVE: The patient is sitting up on the edge of the bed. States he is still having watery diarrhea with flakes after the EGD, colonoscopy today. Overall, though he is feeling better. Eating small amounts. OBJECTIVE: VITAL SIGNS: Temperature 97.5, heart rate 74, blood pressure 128/92, respirations 20, oxygen saturation 100%. GENERAL: No acute distress. LUNGS: Clear to auscultation. No supplemental oxygen. HEENT: EOMI. NECK: Supple. CARDIOVASCULAR: Regular rate and rhythm without murmur. The patient has D5W with 3 amps of sodium bicarbonate infusing into a peripheral IV at 100 mL an hour. ABDOMEN: Bowel sounds positive. Soft, nontender. EXTREMITIES: Without pitting edema. No clubbing, cyanosis, or signs of DVT. NEUROLOGICAL: GCS 15. Nonfocal. LABORATORY DATA: WBCs 6.23, hemoglobin 14.5, hematocrit 40.5, platelets 274. Sodium 133, potassium 4.2, chloride 112, CO2 14, BUN 18, creatinine 1.15, estimated GFR greater than 60, glucose 75, calcium 7.8, phosphorus 1.5, magnesium 2.0. Stool for calprotectin pending. Stool for lactoferrin was positive. Clostridium difficile toxin A and B pending. Coronavirus PCR negative. Stool studies, such as Giardia, ova, and parasite screen pending. No growth after 48 hours for blood cultures. No new imaging studies. ASSESSMENT/PLAN: 1. Viral enteritis with nausea, vomiting, diarrhea, dehydration, weakness, leg cramps, and sigmoid diverticulosis without diverticulitis. Continue IV fluids and Zosyn, IV antibiotics. Gastroenterology following. Start Lomotil in an effort to control the diarrhea. 2. History lymphocytic colitis in 2014. We will await the preliminary reports from studies sent during EGD and colonoscopy today. 3. Severe sepsis due to a viral enteritis with acute kidney injury, present on admission. WBC 6.23. Continue Zosyn. 4. Acute kidney injury. BUN 18, creatinine 1.15, estimated GFR greater than 60 (36/1.57/46), improving considerably. Continue IV fluids. 5. Metabolic acidosis. Serum bicarbonate 14 (15). Continue D5W with 3 amps of sodium bicarb at 100 mL/hour for now. 6. Hypotension due to viral enteritis with a history of hypertension. Continue IV fluids. Blood pressure 128/92, improved. 7. Acute hyponatremia. Sodium level 133 (129, 129). Monitor. 8. Acute hypophosphatemia. Phosphorus level 1.5. Replete with sodium phosphate. 9. Acute hypomagnesemia, improved. Magnesium level 2.0 (1.6). 10. Acute hypokalemia, resolved. Potassium level 4.2 (3.5, 3.1). 11. Hypothyroidism. Levothyroxine 50 mcg p.o. daily, started this hospitalization. 12. Prophylaxis, SCDs, and IV Pepcid. Billing code [id number]. Time spent 35 minutes. Dictated by Riccardo Vázquez, JESSICA Jarvis Solomon MD HWP/MODL /[id number]
[2020-03-18 05:24] LABS: BASOPHILS % 0.5 % (0.0-1.0); EOSINOPHILS # (AUTO) 0.1 (0.0-0.4); EOSINOPHILS % 1.5 % (0.0-6.0); HEMATOCRIT 37.7 % (38.2-49.6); HEMOGLOBIN 13.2 g/dL (14.0-18.0); LYMPHOCYTES # (AUTO) 1.3 (1.0-3.2); LYMPHOCYTES % 14.6 % (18.0-39.1); MEAN CORPUSCULAR HEMOGLOBIN 31.9 pg (28-32); MEAN CORPUSCULAR VOLUME 91.1 fL (81-99); MONOCYTES # (AUTO) 1.2 (0.2-0.8); NEUTROPHILS # (AUTO) 6.1 (2.1-6.9); NEUTROPHILS % 69.1 % (38.7-80.0); PLATELET COUNT 282 x10e3/uL (140-360); RED BLOOD COUNT 4.14 x10e6/uL (4.3-5.7); RED CELL DISTRIBUTION WIDTH 13.3 % (11.7-14.4)
[2020-03-18] MEDS: LEVOTHYROXINE SODIUM 50 MCG TAB PO SCH (05:32)
[2020-03-18] MEDS: PIPER-TAZ 3.375 GM 50 ML IV SCH ×3 (05:32→17:12)
[2020-03-18 05:52] LABS: ANION GAP 10.2 mmol/L (8-16); BLOOD UREA NITROGEN 13 mg/dL (7-26); BUN/CREATININE RATIO 12 (6-25); CALCIUM 7.7 mg/dL (8.4-10.2); CARBON DIOXIDE 18 mmol/L (22-29); CHLORIDE 108 mmol/L (98-107); CREATININE, SERUM 1.13 mg/dL (0.72-1.25); EST GLOMERULAR FILTRATION RATE > 60 ML/MIN (60-); GLUCOSE 80 mg/dL (74-118); POTASSIUM 3.2 mmol/L (3.5-5.1); SODIUM 133 mmol/L (136-145)
[2020-03-18] MEDS ORDERED: SODIUM PHOSPHATE 10 MMOL in SODIUM CHLORIDE 0.9% 100 ML IV ONE (06:00)
[2020-03-18] MEDS ORDERED: SODIUM PHOSPHATE 10 MMOL in SODIUM CHLORIDE 0.9% 250ML 250 ML IV ONE (07:15)
[2020-03-18] MEDS: PANTOPRAZOLE 40 MG 10ML VIAL IV SCH ×2 (08:00→20:59)
[2020-03-18] MEDS: SODIUM BICARBONATE 8.4% 150 ML in DEXTROSE 5% 1,000 ML IV SCH ×2 (08:00→23:29)
[2020-03-18] MEDS: DICYCLOMINE HCL 20 MG TAB PO SCH ×4 (08:00→20:59)
[2020-03-18] MEDS: FAMOTIDINE 20 MG/2 ML VIAL IV SCH ×2 (08:00→20:59)
[2020-03-18] MEDS ORDERED: DIPHENOXYLATE/ATROPINE TAB PO PRN (09:00)
[2020-03-18 14:30] LABS: C DIFFICILE TOXIN A&B AMP PROB NEGATIVE (NEGATIVE)
--- NOTE | 2020-03-18 19:35 | NUR ---
BEDSIDE SHIFT REPORT GIVEN TO ONCOMING NURSE. PATIENT IS RESTING IN BED. NO ACUTE DISTRESS NOTED. CALL LIGHT WITHIN REACH. BED IN THE LOWEST POSITION.
[2020-03-19] VITALS (7 sets, daily range): BP systolic 115–133; BP diastolic 69–79
[2020-03-19] MEDS: PIPER-TAZ 3.375 GM 50 ML IV SCH ×4 (00:10→18:13)
[2020-03-19] MEDS: LEVOTHYROXINE SODIUM 50 MCG TAB PO SCH (05:05)
[2020-03-19 05:59] LABS: BASOPHILS % 0.5 % (0.0-1.0); EOSINOPHILS # (AUTO) 0.2 (0.0-0.4); EOSINOPHILS % 2.1 % (0.0-6.0); HEMATOCRIT 37.4 % (38.2-49.6); HEMOGLOBIN 13.4 g/dL (14.0-18.0); LYMPHOCYTES # (AUTO) 1.3 (1.0-3.2); LYMPHOCYTES % 16.3 % (18.0-39.1); MEAN CORPUSCULAR HEMOGLOBIN 32.7 pg (28-32); MEAN CORPUSCULAR HGB CONC 35.8 g/dL (31-35); MEAN CORPUSCULAR VOLUME 91.2 fL (81-99); MONOCYTES # (AUTO) 1.2 (0.2-0.8); MONOCYTES % 14.2 % (4.4-11.3); NEUTROPHILS # (AUTO) 5.4 (2.1-6.9); NEUTROPHILS % 66.5 % (38.7-80.0); PLATELET COUNT 298 x10e3/uL (140-360); RED CELL DISTRIBUTION WIDTH 13.2 % (11.7-14.4)
[2020-03-19 06:19] LABS: ANION GAP 12.2 mmol/L (8-16); BLOOD UREA NITROGEN 10 mg/dL (7-26); BUN/CREATININE RATIO 11 (6-25); CALCIUM 7.3 mg/dL (8.4-10.2); CARBON DIOXIDE 24 mmol/L (22-29); CHLORIDE 103 mmol/L (98-107); CREATININE, SERUM 0.95 mg/dL (0.72-1.25); EST GLOMERULAR FILTRATION RATE > 60 ML/MIN (60-); GLUCOSE 82 mg/dL (74-118); POTASSIUM 3.2 mmol/L (3.5-5.1); SODIUM 136 mmol/L (136-145)
--- NOTE | 2020-03-19 07:07 | NUR ---
REPORT GIVEN TO DAYSHIFT NURSE. ALERT AND SITTING AT BEDSIDE. NO SIGNS IV INFILTRATION. BED LOCKED AND IN LOW POSITION. CALL LIGHT WITHIN REACH.
--- NOTE | 2020-03-19 07:25 | NUR ---
The lab called with critical level on magnesium and a call was placed to the PA after cheking other lab results. Order received to replace potassium and magnesium.
[2020-03-19] MEDS ORDERED: POTASSIUM CHLORIDE 20 MEQ TAB CR PO STA (07:26)
[2020-03-19] MEDS ORDERED: MAGNESIUM SULFATE 2GM/50ML 50 ML IV ONE ×2 (07:30→11:00)
[2020-03-19] MEDS: DICYCLOMINE HCL 20 MG TAB PO SCH ×3 (09:22→18:13)
[2020-03-19] MEDS: FAMOTIDINE 20 MG/2 ML VIAL IV SCH (09:22)
[2020-03-19] MEDS: PANTOPRAZOLE 40 MG 10ML VIAL IV SCH (09:22)
[2020-03-19] MEDS: SODIUM BICARBONATE 8.4% 150 ML in DEXTROSE 5% 1,000 ML IV SCH (09:22)
--- NOTE | 2020-03-19 09:54 | NUR ---
Lytes replacement is in progress.
[2020-03-19] MEDS ORDERED: SODIUM PHOSPHATE 3 MMOL/ML INJ IV ONE (11:00)
[2020-03-19] MEDS ORDERED: SODIUM CHLORIDE 0.9% 250ML 250 ML ONE (11:35)
--- NOTE | 2020-03-19 13:52 | NUR ---
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 Pt was diagnosed with celiac disease 4-5 years ago. Pt was well educated on Gluten Free diet. Pt was following Gluten Free diet for a long time until recently. Pt showed motivation to get back to Gluten Free diet once discharged. All nutrition related questions have been addressed. 03/17: 59 YOM admitted for enteritis and hypotension with hx of celiac disease and non-compliance with gluten free diet. Pt with reported N/V/D prior to admit and continues to have diarrhea. Consult received from LOCAL AREA NETWORK SYSTEMS ADMINSTRATOR, no reason given. Pt out of room at time of attempted visits, plan for surgery today. Unable to obtain hx from pt at this time. Diet education materials left at bedside, will address at follow up. Rec's provided. Chart reviewed. Will continue to monitor. Principal Problems/Diagnoses: enteritis, hypotension PMH: HTN, celiac disease, hernias, psoriasis GI: 03/19 soft stool, diarrhea improved per pt 03/17- loose stool Skin: intact Labs: 03/19 K 3.2 L, Ca 7.3 L, Phos 2.0 L, Mg 1.1 L 03/17: Na 133, Ca 7.8, Phos 1.5 Meds: Magnesium sulfate, protonix, sodium bicarb, pepcid, K-dur, synthroid Ht: 68 in Wt: 127 lb BMI: 19.3 kg/m2 IBW: 154 lb Malnutrition Evaluation (03/19/20) The patient does not meet criteria for a specified degree of malnutrition at this time. Nutrition Prescription (Diet Order): Cardiac diet/ Gluten free Estimated Nutritional Needs: 8041-0525 calories/day (25-30 kcal/kg CBW) 58-86 g protein/day (1-1.5 g pro/kg CBW) Diet Adequacy: meeting calorie needs, meeting protein needs Diet Tolerance: tolerating Diet Education Needs Assessment: Diet education indicated, pt verbalized understanding. Celiac diet education material was provided. Nutrition Care Level: low Nutrition Diagnosis: No nutrition diagnosis at this time. Goal: Patient will meet 75-100% of estimated needs by follow up Progress: Goal met Interventions: -Gluten, fiber modified diet, Survival information, Recommended Modifications, Multivitamin/mineral supplement therapy Monitoring/Evaluation: -Total energy intake, Total protein intake, Modified diet, Weight change, Level of knowledge, Self management Signed: Linda Srinivasan MS, RD, LD
[2020-03-19] MEDS ORDERED: POTASSIUM CHLORIDE 20 MEQ TAB CR PO ONE (14:00)
[2020-03-19] MEDS ORDERED: SODIUM PHOSPHATE 10 MMOL in SODIUM CHLORIDE 0.9% 250ML 250 ML IV ONE (14:00)
--- NOTE | 2020-03-19 19:48 | NUR ---
RECEIVED PT IN BED AOX3 ,DENIES PAIN ,TELE# [address] CALL LIGHT WITH IN REACH ,CONTINUE TO MONITOR
--- NOTE | 2020-03-19 20:52 | NUR ---
CALLED DR Mike BELL ,HE HAS GIVEN THE CLEARANCE TO GO HOME ,NOTIFIED DR LIVIER LOPEZ MICH.
[2020-03-19] MEDS ORDERED: MAGNESIUM OXID400 MG PO (21:28)
[2020-03-19] MEDS ORDERED: PHOS-NAK PACKE1 EACH PO (21:28)
[2020-03-19] MEDS ORDERED: ZOFRAN8 MG PO (21:28)
[2020-03-19] MEDS ORDERED: DICYCLOMINE HCL20 MG PO (21:28)
[2020-03-19] MEDS ORDERED: SYNTHROID50 MCG PO (21:28)
[2020-03-19] MEDS ORDERED: DIPHENOXYLATE-1 EACH PO (21:28)
--- NOTE | 2020-03-19 22:16 | Progress Note ---
DATE: 03/18/2020 CONSULTING PHYSICIAN: Dr. Norman Moss. SUBJECTIVE: The patient is lying supine in bed. He has been tolerating his cardiac diet well. Denies any nausea, vomiting. Still having loose stools, but stools are forming up. The patient had been having watery diarrhea. This is improving. OBJECTIVE: VITAL SIGNS: Temperature 97.8, heart rate 71, blood pressure 118/78, respirations 18, and oxygen saturation 100%. GENERAL: No acute distress. LUNGS: Clear to auscultation. Respiratory pattern even and unlabored. HEENT: EOMI. NECK: Supple. CARDIOVASCULAR: Regular rate and rhythm. No murmur. ABDOMEN: Bowel sounds positive. Soft, nontender. EXTREMITIES: Without pitting edema. No clubbing, cyanosis, or marked swelling or sign of DVT. NEUROLOGICAL: GCS 15. Nonfocal. LABORATORY DATA: WBCs 8.79, hemoglobin 13.2, hematocrit 37.7, platelets 282. Sodium 133, potassium 3.2, chloride 108, CO2 18, BUN 13, creatinine 1.13, glucose 80, estimated GFR greater than 60, calcium 7.7, phosphorus 2.3. Ova and parasite of stool still pending. Blood cultures x2 on 03/15 show no growth after 72 hours. No new imaging results. ASSESSMENT/PLAN: 1. Viral enteritis with diarrhea, dehydration, weakness, and sigmoid diverticulosis without diverticulitis. Continue IV fluids and Zosyn. Gastroenterology following. The patient states Lomotil is helping. Awaiting final results of stool studies per Gastroenterology. EGD results show gastritis and gastric ulcer. He has a history of celiac disease, should be on a gluten free diet. Colonoscopy showed diverticulosis and rectal polyps. 2. History of lymphocytic colitis in 2014. Continue to await preliminary results from study sent during EGD and colonoscopy on 03/17. 3. Severe sepsis due to viral enteritis with acute kidney injury, present on admission. Currently WBC 8.79. Continue Zosyn. 4. Acute kidney injury. Creatinine 1.13 (1.15, 1.57). Monitor and continue IV fluids. 5. Metabolic acidosis. Serum bicarbonate 18 (14, 15), improving. Continue D5W with 3 amps of sodium bicarbonate at 100 mL an hour for now. 6. Hypotension due to a viral enteritis with a history of hypertension. Continue IV fluids. Blood pressure 118/78. Hold home antihypertensive for now. 7. Acute hyponatremia. Sodium level 133 (133, 129, 129). Monitor. 8. Acute hypophosphatemia. Phosphorus level 2.3 (1.5) within normal limits. Continue to monitor. 9. Acute hypomagnesemia, improved. Last magnesium level was 2.0 (1.6). Monitor. 10. Acute hypokalemia, potassium level 3.2 (4.2, 3.5, 3.1). Replete. Monitor. 11. Hypothyroidism. Levothyroxine 50 mcg p.o. daily, started this hospitalization. 12. Prophylaxis. SCDs and IV Pepcid. Billing code [id number]. Time spent 35 minutes. Dictated by Riccardo Vázquez NP Jarvis Solomon MD HWP/MODL /[id number]
--- NOTE | 2020-03-19 23:07 | Discharge Summary ---
PRIMARY CARE PHYSICIAN: Vernon Frye DO. CONSULTING PHYSICIAN: Dr. Norman Moss with Gastroenterology. CHIEF COMPLAINT: Diarrhea. HISTORY OF PRESENT ILLNESS: The patient is a 59-year-old male, who presented to the emergency department with a 5-day history of nausea, vomiting, diarrhea, leg cramps, weakness, and dehydration. He admitted noncompliance with the celiac gluten-free diet and drinking some whiskey as well. He was given a considerable amount of fluids in the emergency department, likely around 3 L. Please see dictated history and physical for past medical history, surgical history, family history, and social history. ALLERGIES: HE HAS NO KNOWN ALLERGIES. ADMITTING DIAGNOSES: 1. Viral enteritis with nausea, vomiting, diarrhea, dehydration, weakness, leg cramps, and sigmoid diverticulosis without diverticulitis. 2. Severe sepsis due to a viral enteritis with acute kidney injury, POA (improving). 3. Acute kidney injury. 4. Hypotension due to viral enteritis with a history of hypertension. 5. Metabolic acidosis. 6. Acute hyponatremia. 7. Acute hypokalemia. 8. Hypothyroidism. DISCHARGE DIAGNOSES: 1. Viral enteritis with nausea, vomiting, diarrhea, dehydration, weakness, leg cramps, and sigmoid diverticulosis without diverticulitis. 2. Severe sepsis due to a viral enteritis with acute kidney injury, POA (improving). 3. Acute kidney injury. 4. Hypotension due to viral enteritis with a history of hypertension. 5. Metabolic acidosis. 6. Acute hyponatremia. 7. Acute hypomagnesemia. 8. Acute hypokalemia. 9. Hypothyroidism. HOSPITAL COURSE: Please see history and physical for admitting laboratory data. Coronavirus PCR collected on day of admission was negative. Chest x-ray was negative. CT of the abdomen and pelvis showed viral enteritis, sigmoid diverticulosis, and atherosclerotic vascular disease. On 03/17, the patient underwent EGD with biopsies and colonoscopy with polypectomy and biopsies. Per Dr. Moss's impression included normal esophagus, small sliding hiatal hernia, gastritis, which was biopsied and biopsy sent to stain for H. pylori, gastric ulcer approximately 4 mm in size, minute nodule proximal 2nd portion of the duodenum, biopsied. Suboptimal prep for colonoscopy, but visualization was fair. Rule out microscopic colitis, diverticulosis, rectal polyp, hot snared, internal hemorrhoids, not actively bleeding. Today, on the day of discharge, vital signs, temperature 97.6, heart rate 64, respirations 20, blood pressure 117/69, and oxygen saturation 100%. WBCs on 03/15, was 16.75. Today, WBCs 8.1, hemoglobin 13.4, hematocrit 37.4, platelets 298. Sodium 136, potassium 3.2, chloride 103, CO2 of 24, anion gap 12.2, BUN 10 and creatinine 0.95, estimated GFR greater than 60. Glucose 82, calcium 7.3, phosphorus 2.0, magnesium 1.1. As the patient's electrolytes were still imbalanced, today, the patient received 4 g of magnesium sulfate IV followed by 40 mEq of potassium chloride orally as well as 10 millimoles of sodium phosphate. The patient's prescriptions include dicyclomine 20 mg p.o. q.i.d., Lomotil 1 tablet p.r.n. for diarrhea, Synthroid 50 mcg daily as the patient was diagnosed with hypothyroidism. On 03/15, the thyroid-stimulating hormone was 6.319. The patient will also be sent home on magnesium oxide 400 mg p.o. b.i.d., Phos-Nak packet, one packet p.o. every 48 hours for low phosphorus and low potassium. Zofran p.r.n. for nausea and/or vomiting. The patient to continue gluten-free diet. At home, activity level as tolerated. Follow up with PCP in 1-2 weeks, which is Dr. Vernon Frye. Follow up with Dr. Moss as directed. Limit Lomotil use to three tablets per day. There is still stool studies pending such as calprotectin. His C. difficile toxin A and B were negative. Stool for lactoferrin was positive. Ova and parasite screen as well as Giardia antigen, stool aspirate remain pending. Blood cultures x2 show no growth after 72 hours. Dictated by Riccardo Vázquez, JESSICA MD SAVANNAH NicolasP/MODL /[id number]
--- NOTE | 2020-03-19 23:29 | NUR ---
PT IS DISCHARGED TO HOME FAMILY HAS TAKEN THE PT TO HOME.NO ACUTE DISTRESS NOTED .
== END 2020-03-19 22:30 | disposition home or self-care (01) | DRG 854 ==
LOC: ER 12:34 → ERHOLD 16:47 → MED/SURG2 20:55
PROVIDERS: ADMIT Internal Medicine; ATTEND Internal Medicine
PROC: 0DBP8ZX Excision of Rectum, Via Natural or Artificial Opening Endoscopic, Diagnostic (ICD-10-PCS; 2020-03-17)
PROC: 0DBE8ZX Excision of Large Intestine, Via Natural or Artificial Opening Endoscopic, Diagnostic (ICD-10-PCS; 2020-03-17)
PROC: 0DB98ZX Excision of Duodenum, Via Natural or Artificial Opening Endoscopic, Diagnostic (ICD-10-PCS; 2020-03-17)
PROC: 0DB78ZX Excision of Stomach, Pylorus, Via Natural or Artificial Opening Endoscopic, Diagnostic (ICD-10-PCS; principal; 2020-03-17 14:00)
PROC: 0DBB8ZZ Excision of Ileum, Via Natural or Artificial Opening Endoscopic (ICD-10-PCS; 2020-03-17 14:00)
PROC: 0DB88ZZ Excision of Small Intestine, Via Natural or Artificial Opening Endoscopic (ICD-10-PCS; 2020-03-17 14:00)
DX: A41.9 Sepsis, unspecified organism (principal); N17.9 Acute kidney failure, unspecified; E87.1 Hypo-osmolality and hyponatremia; E87.2 Acidosis; R65.20 Severe sepsis without septic shock; A08.4 Viral intestinal infection, unspecified; E86.0 Dehydration; E87.6 Hypokalemia; E83.42 Hypomagnesemia; E83.39 Other disorders of phosphorus metabolism; E03.9 Hypothyroidism, unspecified; K57.30 Diverticulosis of large intestine without perforation or abscess without bleeding; K44.9 Diaphragmatic hernia without obstruction or gangrene; K25.9 Gastric ulcer, unspecified as acute or chronic, without hemorrhage or perforation; K29.70 Gastritis, unspecified, without bleeding; Z11.59 Encounter for screening for other viral diseases
CPT/HCPCS: 36415; 43239; 45378; 45385; 71045; 74176; 80048; 80053; 80061; 81001; 83036; 83605; 83615; 83630; 83735; 83993; 84100; 84436; 84443; 84484; 85025; 85610; 85730; 87040; 87045; 87177; 87328; 87493; 88305; 88312; 93005; 99285; J1610; J2543; J2765; J3475; J7030; J7050; J7070; J7121; U0002